=== PATIENT | female | born 1960 | race Caucasian/White ===

== ENCOUNTER → 2017-10-18 | Outpatient (CLI) | payer OTHER ==
--- NOTE | 2017-10-19 11:30 | MM ---
Reason for exam: screening (asymptomatic). Last mammogram was performed 1 year and 1 month ago. History: Patient is postmenopausal. Benign u/S left breast localization of the left breast, October 09, 2011. Benign US LT VAD breast biopsy of the left breast, September 27, 2011. Benign US left guided VAD of the left breast, July 29, 2010. Took hormonal contraceptives for 1 year beginning at age 19. Taking estrogen. Taking progesterone. Physical Findings: A clinical breast exam by your physician is recommended on an annual basis and results should be correlated with mammographic findings. MG 3D Screening Mammo W/Cad Bilateral CC and MLO view(s) were taken. Prior study comparison: September 25, 2016, bilateral MG 3d screening mammo w/cad. October 07, 2015, bilateral MG screening mammo w CAD. The breast tissue is extremely dense which could obscure a lesion on mammography. There is no discrete abnormality. No significant changes when compared with prior studies. ASSESSMENT: Negative, BI-RAD 1 RECOMMENDATION: Routine screening mammogram of both breasts in 1 year.
== END | disposition home or self-care (01) ==
LOC: RADMAMWWP 13:33
PROVIDERS: ATTEND Obstetrics & Gynecology
DX: Z12.31 Encounter for screening mammogram for malignant neoplasm of breast (principal)
CPT/HCPCS: 77063; G0202

== ENCOUNTER → 2018-10-22 | Outpatient (CLI) | payer OTHER ==
--- NOTE | 2018-10-24 13:34 | MM ---
Reason for exam: screening (asymptomatic). Last mammogram was performed 1 year ago. History: Patient is postmenopausal. Benign u/S left breast localization of the left breast, October 09, 2011. Benign US LT VAD breast biopsy of the left breast, September 27, 2011. Benign US left guided VAD of the left breast, July 29, 2010. Took hormonal contraceptives for 1 year beginning at age 19. Taking estrogen. Taking progesterone. Physical Findings: A clinical breast exam by your physician is recommended on an annual basis and results should be correlated with mammographic findings. MG 3D Screening Mammo W/Cad Bilateral CC and MLO view(s) were taken. Prior study comparison: October 18, 2017, bilateral MG 3d screening mammo w/cad. September 25, 2016, bilateral MG 3d screening mammo w/cad. The breast tissue is heterogeneously dense. This may lower the sensitivity of mammography. There is chronic nodularity bilaterally. No significant changes when compared with prior studies. ASSESSMENT: Negative, BI-RAD 1 RECOMMENDATION: Routine screening mammogram of both breasts in 1 year.
== END | disposition home or self-care (01) ==
LOC: RADMAMWWP 10:41
PROVIDERS: ATTEND Obstetrics & Gynecology
DX: Z12.31 Encounter for screening mammogram for malignant neoplasm of breast (principal)
CPT/HCPCS: 77063; 77067

== ENCOUNTER → 2019-09-10 | Outpatient (CLI) | payer OTHER ==
--- NOTE | 2019-09-10 10:52 | FL ---
EXAMINATION TYPE: FL UGI w small bowel DATE OF EXAM: 09/10/2019 COMPARISON: NONE HISTORY: GERD and thyroid disease unspecified. Patient complains of reflux and stomach pain for 3 mon ths. Palpable hardness when eating per patient. Has had some relief of symptoms in past with reflux m edication. TECHNIQUE: A double contrast UGI study is performed with small bowel follow through. Total 1 minute 53 seconds of fluoroscopic time was utilized during procedure. 55 spot images are saved to PACS. FINDINGS: Collection Officer image of the abdomen shows no gross abnormality. The esophagus shows satisfactory motility and emptying into the stomach. No evidence of fixed hiatal hernia or stricture noted. The stomach shows satisfactory distensibility, peristalsis, and mucosal folds. No evidence of any ma ss or focal ulcer disease. Mild distal esophageal reflux observed during real-time performance of geetha dy. The duodenal bulb and sweep are somewhat unusual with focal diverticulum along mesenteric surface thi rd portion. There is some redundancy with ligament of Treitz or duodenal jejunal junction felt that m ore near the midline. The small bowel study shows normal transit to the colon in less than 30 minutes. There is normal muc osal fold pattern throughout the small bowel. There is no evidence of any stricture or filling defec t noted. The terminal ileum is unremarkable. IMPRESSION: Mild gastroesophageal reflux. No focal ulcer or fixed hiatal hernia. Small duodenal dive rticulum. Possible underlying malrotation. Because of this along with patient complaining of hard pal pable mass advised follow-up CT to further assess.
--- NOTE | 2019-09-10 13:21 | US ---
EXAMINATION TYPE: US thyroid st tissue head/neck DATE OF EXAM: 09/10/2019 COMPARISON: NONE CLINICAL HISTORY: E07.9 Thyroid disease, unspecified, K21.9 Gerd,. Patient states she's taking thyroi d meds. GLAND SIZE: Right Lobe: 4.2 x 1.4 x 1.3 cm Overall Parenchyma: homogenous Left Lobe: 4.3 x 1.4 x 1.4 cm Overall Parenchyma: homogeneous Isthmus Thickness: 0.3 cm NODULES RIGHT: # of nodules measured on right: 0 LEFT: # of nodules measured on left: 0 ISTHMUS: # of nodules measured in the isthmus: 0 Bilateral neck scanned, no evidence of lymphadenopathy. No nodules seen. Thyroid echotexture is homogenous and symmetric. IMPRESSION: Thyroid ultrasound within normal limits.
== END | disposition home or self-care (01) ==
LOC: RADUSMAIN 07:56
PROVIDERS: ATTEND Family Medicine
DX: K21.9 Gastro-esophageal reflux disease without esophagitis (principal); K57.10 Diverticulosis of small intestine without perforation or abscess without bleeding
CPT/HCPCS: 74245; 76536

== ENCOUNTER → 2019-09-24 | Outpatient (CLI) | payer OTHER ==
--- NOTE | 2019-09-24 11:53 | CT ---
EXAMINATION TYPE: CT abdomen pelvis wo con DATE OF EXAM: 09/24/2019 COMPARISON: None HISTORY: abd pain heartburn bloating stool changes CT DLP: 831 mGycm Examination of the solid and hollow viscera is limited given the lack of contrast. FINDINGS: LUNG BASES: No evidence for nodule. No evidence for infiltrate. LIVER/GB: The gallbladder is unremarkable. No space-occupying hepatic lesion. PANCREAS: No pancreatic mass identified. No inflammatory process seen. SPLEEN: No evidence for splenomegaly. No intrasplenic lesions seen. ADRENALS: No adrenal nodules identified. No evidence for thickening. KIDNEYS: No evidence for renal mass. No nephrolithiasis. No hydronephrosis. BOWEL: Appendix has a normal appearance. No evidence of bowel obstruction. No inflammatory process. Lymph nodes: No evidence for adenopathy greater than 1 cm. Abdominal aorta: Atheromatous changes seen. No evidence for aneurysm. Genital organs: Right ovarian cystic mass measures of 4.1 cm. Further characterization with ultrasoun d is advised. Left ovarian cystic lesion measures 1.8 cm. The uterus appears to be somewhat atrophic. Other: No significant abnormality. IMPRESSION: 1 NO EVIDENCE FOR ABDOMINAL AORTIC ANEURYSM. 2.Right ovarian cystic mass measures of 4.1 cm. Further characterization with ultrasound is advised. Left ovarian cystic lesion measures 1.8 cm.
== END | disposition home or self-care (01) ==
LOC: RADCTMAIN 10:16
PROVIDERS: ATTEND Family Medicine
DX: N83.201 Unspecified ovarian cyst, right side (principal); N83.202 Unspecified ovarian cyst, left side
CPT/HCPCS: 74176

== ENCOUNTER → 2019-10-09 | Outpatient (CLI) | payer OTHER ==
--- NOTE | 2019-10-10 07:10 | US ---
EXAMINATION TYPE: US pelvic complete DATE OF EXAM: 10/09/2019 COMPARISON: Please compare to CT. CLINICAL HISTORY: N83.0 Ovarian cyst in postmenopausal patient TECHNIQUE: Transvaginal (TV) and Transabdominal (TA) . Transabdominal sonographic images of the pel vis were acquired. Transvaginal sonographic images were medically necessary to better assess the fol lowing anatomy: ovaries Date of LMP: 15 years prior, patient had hysterectomy EXAM MEASUREMENTS: Uterus: Surgically absent Endometrial Stripe: Surgically absent Right Ovary: 4.0 x 3.9 x 4.0cm Left Ovary: not visualized, extensive peristalsing bowel in left adnexa 1. Uterus: Surgically absent 2. Endometrium: Surgically absent 3. Right Ovary: cyst measuring with internal debris and solid component measuring 0.6 x 0.3 x 0.7c m 4. Left Ovary: not visualized, extensive peristalsing bowel in left adnexa 5. Bilateral Adnexa: wnl 6. Posterior cul-de-sac: wnl IMPRESSION: 1. Uterus is surgically absent. 2. Right ovarian cyst with internal debris and solid component. Hemorrhagic cyst or neoplasm is not e xcluded. Follow-up study in 6 weeks is advised.
== END | disposition home or self-care (01) ==
LOC: RADUSWWP 15:27
PROVIDERS: ATTEND Family Medicine
DX: N83.201 Unspecified ovarian cyst, right side (principal); Z90.710 Acquired absence of both cervix and uterus; Z88.2 Allergy status to sulfonamides; Z91.048 Other nonmedicinal substance allergy status; Z88.5 Allergy status to narcotic agent; Z88.1 Allergy status to other antibiotic agents
CPT/HCPCS: 76856

== ENCOUNTER → 2019-10-23 | Outpatient (CLI) | payer OTHER ==
--- NOTE | 2019-10-23 14:08 | BD ---
EXAMINATION TYPE: Axial Bone Density DATE OF EXAM: 10/23/2019 COMPARISON: 10.06.2008 CLINICAL HISTORY: 59 YR OLD FEMALE....ICD-10 CODE: N95.1 MENOPAUSAL SYMPTOMS Height: 67 Weight: 150 FRAX RISK QUESTIONS: NOTHING ADDITIONAL TO NOTE HERE RISK FACTORS HISTORY OF: Active: YES Diet low in dairy products/other sources of calcium: YES, GI ISSUES Postmenopausal woman: YES, AT ABOUT AGE 49 Take estrogen and/or progesterone medications: BIO-IDENTICAL HORMONES FOR ABOUT 5 YRS BCPs IN THE PAST FOR ABOUT 1 YR Hyperparathyroidism: NO Adrenal Insufficiency: NO MEDICATIONS: Prednisone or other steroids: STEROIDAL CREAM, TOPICAL, , FOR ABOUT 5-6 YRS Thyroid Medications: YES, PIT SUPERVISOR THYROID, 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 NATURAL THYROID, FOR ABOUT 2 YRS Additional Medications: CALCIUM/MAGNESIUM AND VIT D, REFLUX MEDS, Additional History: REFLUX AND THYROID EXAM MEASUREMENTS: Bone mineral densitometry was performed using the [employer]oyo System. Bone mineral density as measured about the Lumbar spine is: ----- L1-L4(G/cm2): 1.256 T Score Values are as follows: ----- L1: 0.2 ----- L2: 0.3 ----- L3: 1.1 ----- L4: 0.6 ----- L1-L4: 0.6 Bone mineral density has: Increased 5.9% since study of: 10.06.2008 Bone mineral density about the R hip (g/cm2): 0.942 Bone mineral density about the L hip (g/cm2): 0.974 T Score values are as follows: -----R Neck: -0.3 -----L Neck: -0.4 -----R Total: -0.2 -----L Total: -0.3 Bone mineral density has: Increased 1.0% since study of: 10.06.2008 FRAX%s: THERE IS A 6.4% CHANCE FOR A MAJOR OSTEOPOROTIC FX AND A 0.2% FOR HIP.....PROBABILITY FOR F X IN 10 YRS TIME IMPRESSION: Normal (Values between +1 and -1 indicate normal bone mass). Consider repeating this study in 5 year s or sooner if there is some new clinical indication. NOTE: T-SCORE=SD OF THE YOUNG ADULT MEAN.
--- NOTE | 2019-10-24 14:10 | MM ---
Reason for exam: screening (asymptomatic). Last mammogram was performed 1 year ago. History: Patient is postmenopausal. Benign u/S left breast localization of the left breast, October 09, 2011. Benign US LT VAD breast biopsy of the left breast, September 27, 2011. Benign US left guided VAD of the left breast, July 29, 2010. Took hormonal contraceptives for 1 year beginning at age 19. Taking estrogen. Taking progesterone. Physical Findings: A clinical breast exam by your physician is recommended on an annual basis and results should be correlated with mammographic findings. MG 3D Screening Mammo W/Cad Bilateral CC and MLO view(s) were taken. Prior study comparison: October 22, 2018, bilateral MG 3d screening mammo w/cad. October 18, 2017, bilateral MG 3d screening mammo w/cad. The breast tissue is heterogeneously dense. This may lower the sensitivity of mammography. Finding #1: Stable architectural distortion in the upper quadrant of the left breast consistent with known excisional changes. Finding #2: There are typically benign round calcifications in the left breast. There is a chronic nodularity in the right breast. There is no discrete abnormality. ASSESSMENT: Benign, BI-RAD 2 RECOMMENDATION: Routine screening mammogram of both breasts in 1 year.
== END | disposition home or self-care (01) ==
LOC: RADMAMWWP 13:07
PROVIDERS: ATTEND Obstetrics & Gynecology
DX: Z12.31 Encounter for screening mammogram for malignant neoplasm of breast (principal); N95.1 Menopausal and female climacteric states
CPT/HCPCS: 77063; 77067; 77080

== ENCOUNTER → 2020-10-20 | Outpatient (CLI) | payer OTHER ==
--- NOTE | 2020-10-22 10:18 | MM ---
Reason for exam: screening (asymptomatic). Last mammogram was performed 1 year ago. History: Patient is postmenopausal. Benign u/S left breast localization of the left breast, October 09, 2011. Benign US LT VAD breast biopsy of the left breast, September 27, 2011. Benign US left guided VAD of the left breast, July 29, 2010. Took hormonal contraceptives for 1 year beginning at age 19. Taking estrogen. Taking progesterone. Physical Findings: A clinical breast exam by your physician is recommended on an annual basis and results should be correlated with mammographic findings. MG 3D Screening Mammo W/Cad Bilateral CC and MLO view(s) were taken. Prior study comparison: October 23, 2019, bilateral MG 3d screening mammo w/cad. October 22, 2018, bilateral MG 3d screening mammo w/cad. The breast tissue is heterogeneously dense. This may lower the sensitivity of mammography. Oval asymmetric density subareolar right MLO view persists on 3D but has no clear correlate on CC. Further evaluation recommended. ASSESSMENT: Incomplete: need additional imaging evaluation, BI-RAD 0 RECOMMENDATION: Special view mammogram of the right breast. (3D) If lesion persists on supplemental views, image directed ultrasound is recommended. [facility] will attempt to contact patient to return for supplemental views and ultrasound if indicated.
== END | disposition home or self-care (01) ==
LOC: RADMAMWWP 11:51
PROVIDERS: ATTEND Obstetrics & Gynecology
DX: Z12.31 Encounter for screening mammogram for malignant neoplasm of breast (principal)
CPT/HCPCS: 77063; 77067

== ENCOUNTER → 2020-10-22 | Outpatient (CLI) | payer OTHER ==
[2020-10-22 20:47] LABS: Gliadin AB IgA, Deaminated NEGATIVE (NEGATIVE); Gliadin AB IgA, Unit 0.3 U/mL; Gliadin AB IgG, Deaminated NEGATIVE (NEGATIVE)
== END | disposition home or self-care (01) ==
LOC: LABWHC1 09:56
PROVIDERS: ATTEND Nurse Practitioner
DX: R19.4 Change in bowel habit (principal)
CPT/HCPCS: 36415; 82656; 83516

== ENCOUNTER → 2020-10-27 | Outpatient (CLI) | payer OTHER ==
--- NOTE | 2020-10-27 08:59 | MM ---
Reason for exam: additional evaluation requested from abnormal screening. Last mammogram was performed less than 1 month ago. History: Patient is postmenopausal. Benign u/S left breast localization of the left breast, October 09, 2011. Benign US LT VAD breast biopsy of the left breast, September 27, 2011. Benign US left guided VAD of the left breast, July 29, 2010. Took hormonal contraceptives for 1 year beginning at age 19. Taking estrogen for 5 years. Taking progesterone for 5 years. Physical Findings: Nurse did not find any significant physical abnormalities on exam. MG 3D Work Up W/Cad RT ML and spot compression MLO view(s) were taken of the right breast. Prior study comparison: October 20, 2020, bilateral MG 3d screening mammo w/cad. October 23, 2019, bilateral MG 3d screening mammo w/cad. The breast tissue is heterogeneously dense. This may lower the sensitivity of mammography. There is no discrete abnormality. These results were verbally communicated with the patient and result sheet given to the patient on 10/27/20. ASSESSMENT: Benign, BI-RAD 2 RECOMMENDATION: Return to routine screening mammogram schedule for both breasts.
== END | disposition home or self-care (01) ==
LOC: RADMAMWWP 07:41
PROVIDERS: ATTEND Obstetrics & Gynecology
DX: R92.8 Other abnormal and inconclusive findings on diagnostic imaging of breast (principal)
CPT/HCPCS: 77061; 77065

== ENCOUNTER → 2021-11-02 | Outpatient (CLI) | payer OTHER ==
--- NOTE | 2021-11-03 12:30 | MM ---
Reason for exam: screening (asymptomatic). Last mammogram was performed 1 year ago. History: Patient is postmenopausal. Benign u/S left breast localization of the left breast, October 09, 2011. Benign US LT VAD breast biopsy of the left breast, September 27, 2011. Benign US left guided VAD of the left breast, July 29, 2010. Took hormonal contraceptives for 1 year beginning at age 19. Taking estrogen for 5 years. Taking progesterone for 5 years. Physical Findings: A clinical breast exam by your physician is recommended on an annual basis and results should be correlated with mammographic findings. MG 3D Screening Mammo W/Cad Bilateral CC and MLO view(s) were taken. Prior study comparison: October 27, 2020, right breast MG 3d work up w/cad RT. October 20, 2020, bilateral MG 3d screening mammo w/cad. The breast tissue is extremely dense which could obscure a lesion on mammography. There is no discrete abnormality. ASSESSMENT: Negative, BI-RAD 1 RECOMMENDATION: Routine screening mammogram of both breasts in 1 year. Some consider bilateral ultrasound surveillance in patient with extremely dense fibroglandular tissue.
== END | disposition home or self-care (01) ==
LOC: RADMAMWWP 09:33
PROVIDERS: ATTEND Obstetrics & Gynecology
DX: Z12.31 Encounter for screening mammogram for malignant neoplasm of breast (principal); Z78.0 Asymptomatic menopausal state
CPT/HCPCS: 77063; 77067

== ENCOUNTER → 2022-05-04 | Outpatient (CLI) | payer OTHER ==
[2022-05-04 10:40] LABS: HCT 41.2 % (37.2-46.3); HGB 13.2 g/dL (12.0-15.0); MCH 28.8 pg (27.0-32.0); MCV 89.8 fL (80.0-97.0); Mean Platelet Volume 9.9 fL (9.5-12.2); NRBC Per 100 WBC 0 /100 WBCS (0.0-0.0); Platelet Count 253 X 10*3/uL (140-440); RBC 4.59 X 10*6/uL (4.10-5.20); RDW 13.1 % (11.5-14.5); WBC 5.25 X 10*3/uL (4.50-10.00)
[2022-05-04 10:59] LABS: ALT 18 U/L (8-44); AST 23 U/L (13-35); African American GFR (CKD) 109.3 (60.0-200.0); Albumin 4.3 g/dL (3.8-4.9); Albumin/Globulin Ratio 1.67 (1.60-3.17); Alkaline Phosphatase 103 U/L (41-126); BUN/Creat Ratio 25.73 Ratio (12.00-20.00); Blood Urea Nitrogen 16.8 mg/dL (9.0-27.0); Carbon Dioxide 24.6 mmol/L (20.0-27.5); Chloride 105 mmol/L (96-109); Chol/HDL Ratio 2.56 Ratio; Globulin 2.6 g/dL (1.6-3.3); Glucose 94 mg/dL (70-110); LDL Cholesterol,Calculated 115.3 mg/dL (0.0-131.0); Magnesium 2.1 mg/dL (1.5-2.4); Non-African American GFR(CKD) 94.3 (60.0-200.0); Potassium 3.7 mmol/L (3.5-5.5); Sodium 142 mmol/L (135-145); Total Protein 6.9 g/dL (6.2-8.2); VLDL Calculation 11.64 mg/dL (5.00-40.00)
== END | disposition home or self-care (01) ==
LOC: LABWHC1 07:39
PROVIDERS: ATTEND Nurse Practitioner Adult Health
DX: Z00.00 Encounter for general adult medical examination without abnormal findings (principal); E78.5 Hyperlipidemia, unspecified; E03.9 Hypothyroidism, unspecified
CPT/HCPCS: 36415; 80053; 80061; 83735; 84443; 85027

== ENCOUNTER → 2022-11-03 | Outpatient (CLI) | payer OTHER ==
--- NOTE | 2022-11-06 09:29 | MM ---
Reason for Exam: Screening (asymptomatic). Last screening mammogram was performed 12 month(s) ago. Patient History: Menarche at age 12. First Full-Term at age 29. Late child-bearing (after 29). Hysterectomy at age 45. Postmenopausal. Currently using Estrogen, for 5 years. Currently using Progesterone, for 5 years. Hormonal Contraceptives, starting at age 19 for 1 year. 10/09/2011, Benign Excisional Biopsy on the left side. 09/27/2011, Benign Core Biopsy on the left side. 07/29/2010, Benign Core Biopsy on the left side. Risk Values: Brenda 5 year model risk: 3.3%. NCI Lifetime model risk: 13.4%. Prior Study Comparison: 10/20/2020 Bilateral Screening Mammogram, [facility]. 10/27/2020 Right Diagnostic Mammogram, [facility]. 11/02/2021 Bilateral Screening Mammogram, [facility]. Tissue Density: The breast tissue is heterogeneously dense. This may lower the sensitivity of mammography. Findings: Analyzed By CAD. Small benign-appearing bilateral axillary lymph nodes are redemonstrated. There is no suspicious new group of microcalcifications or new distortion in either breast. Overall Assessment: Negative, BI-RAD 1 Management: Screening Mammogram of both breasts in 1 year. Some advise bilateral breast ultrasound surveillance in patients with background dense tissue. A clinical breast exam by your physician is recommended on an annual basis and results should be correlated with mammographic findings. Electronically signed and approved by: Raza Infante M.D.
== END | disposition home or self-care (01) ==
LOC: RADMAMWWP 09:58
PROVIDERS: ATTEND Obstetrics & Gynecology
DX: Z12.31 Encounter for screening mammogram for malignant neoplasm of breast (principal); Z78.0 Asymptomatic menopausal state
CPT/HCPCS: 77063; 77067

== ENCOUNTER → 2023-05-08 | Outpatient (CLI) | payer OTHER ==
[2023-05-08 19:18] LABS: HCT 44.5 % (37.2-46.3); HGB 14.1 d/dL (12.0-15.0); MCHC 31.7 d/dL (32.0-37.0); MCV 91.6 FL (80.0-97.0); Mean Platelet Volume 10.2 FL (9.5-12.2); NRBC Per 100 WBC 0 X 10*3/uL (0.00-0.01); Platelet Count 244 X 10*3/uL (140-440); RBC 4.86 X 10*6/uL (4.10-5.20); RDW 12.4 % (11.5-14.5); WBC 5.43 X 10*3/uL (4.50-10.00)
[2023-05-09 05:22] LABS: ALT 23 U/L (8-44); AST 25 U/L (13-35); Albumin 4.3 d/dL (3.8-4.9); Albumin/Globulin Ratio 1.72 Ratio (1.60-3.17); Alkaline Phosphatase 115 U/L (41-126); BUN/Creat Ratio 14.14 Ratio (12.00-20.00); Blood Urea Nitrogen 9.9 mg/dL (9.0-27.0); Calcium 9.3 mg/dL (8.7-10.3); Carbon Dioxide 25.4 mmol/L (21.6-31.8); Chloride 105 mmol/L (96-109); Globulin 2.5 d/dL (1.6-3.3); Glucose 94 mg/dL (70-110); LDL Cholesterol,Calculated 131.7 mg/dL (0.0-131.0); Potassium 4.5 mmol/L (3.5-5.5); Sodium 141 mmol/L (135-145); T4, Free (Free Thyroxine) 0.81 ng/dL (0.80-1.80); Total Bilirubin 0.9 mg/dL (0.3-1.2); Total Protein 6.8 d/dL (6.2-8.2); Uric Acid 3.7 mg/dL (2.9-7.7)
== END | disposition home or self-care (01) ==
LOC: LABWHC1 08:36
PROVIDERS: ATTEND Family Medicine
DX: Z00.00 Encounter for general adult medical examination without abnormal findings (principal); E03.9 Hypothyroidism, unspecified
CPT/HCPCS: 36415; 80053; 80061; 82306; 83036; 84439; 84443; 84550; 85027

== ENCOUNTER → 2023-11-05 | Outpatient (CLI) | payer OTHER ==
--- NOTE | 2023-11-07 08:35 | MM ---
Reason for Exam: Screening (asymptomatic). Last screening mammogram was performed 12 month(s) ago. Patient History: Menarche at age 12. First Full-Term at age 29. Late child-bearing (after 29). Hysterectomy at age 45. Postmenopausal. Currently using Estrogen, for 5 years. Currently using Progesterone, for 5 years. Hormonal Contraceptives, starting at age 19 for 1 year. 10/09/2011, Benign Excisional Biopsy on the left side. 09/27/2011, Benign Core Biopsy on the left side. 07/29/2010, Benign Core Biopsy on the left side. Risk Values: Brenda 5 year model risk: 3.3%. NCI Lifetime model risk: 13.0%. Prior Study Comparison: 10/27/2020 Right Diagnostic Mammogram, [facility]. 11/02/2021 Bilateral Screening Mammogram, [facility]. 11/03/2022 Bilateral MG 3D screening mammo w/cad, [facility]. Tissue Density: The breast tissue is heterogeneously dense. This may lower the sensitivity of mammography. Findings: Analyzed By CAD. There is no suspicious group of microcalcifications or new suspicious mass in either breast. Overall Assessment: Benign, BI-RAD 2 Management: Screening Mammogram of both breasts in 1 year. . Patient should continue monthly self-breast exams. A clinical breast exam by your physician is recommended on an annual basis. This exam should not preclude additional follow-up of suspicious palpable abnormalities. Note on Brenda scores and lifetime risk: 1. A Brenda score greater than 3% is considered moderate risk. If this is the case, consider specialist referral to assess eligibility for a risk reducing agent. 2. If overall lifetime risk for the development of breast cancer is 20% or higher, the patient may qualify for future screening with alternating mammogram and breast MRI. Electronically signed and approved by: Piero Hayes M.D. Radiologis
== END | disposition home or self-care (01) ==
LOC: RADMAMWWP 10:56
PROVIDERS: ATTEND Obstetrics & Gynecology
DX: Z12.31 Encounter for screening mammogram for malignant neoplasm of breast (principal); Z78.0 Asymptomatic menopausal state
CPT/HCPCS: 77063; 77067

== ENCOUNTER → 2023-11-08 | Outpatient (CLI) | payer OTHER ==
[2023-11-08 18:34] LABS: T4, Free (Free Thyroxine) 1.08 ng/dL (0.80-1.80)
== END | disposition home or self-care (01) ==
LOC: LABWHC1 11:33
PROVIDERS: ATTEND Internal Medicine Clinical Cardiac Electrophysiology
DX: E07.9 Disorder of thyroid, unspecified (principal)
CPT/HCPCS: 36415; 84439; 84443; 84481

== ENCOUNTER → 2024-11-06 | Outpatient (CLI) | payer MEDICARE ==
--- NOTE | 2024-11-10 18:12 | MM ---
Reason for Exam: Screening (asymptomatic). Last screening mammogram was performed 12 month(s) ago. Patient History: Menarche at age 12. First Full-Term at age 29. Late child-bearing (after 29). Hysterectomy at age 45. Postmenopausal. Currently using Estrogen, for 5 years. Patient used Progesterone for 5 years. Hormonal Contraceptives, starting at age 19 for 1 year. 10/09/2011, Benign Excisional Biopsy on the left side. 09/27/2011, Benign Core Biopsy on the left side. 07/29/2010, Benign Core Biopsy on the left side. Risk Values: Brenda 5 year model risk: 3.4%. NCI Lifetime model risk: 12.6%. Prior Study Comparison: 11/02/2021 Bilateral Screening Mammogram, [facility]. 11/03/2022 Bilateral MG 3D screening mammo w/cad, [facility]. 11/05/2023 Bilateral MG 3D screening mammo w/cad, [facility]. Tissue Density: The breasts are heterogeneously dense, which may obscure small masses. Findings: Analyzed By CAD. Asymmetric density in the lateral subareolar right cc view is unchanged. Possible distortion central inner left cc view posterior depth for which further evaluation is recommended. Asymmetric density far posterior lateral right cc view and also medial right CC view middle depth both of which are more pronounced and incompletely disperses on 3-D images. Further evaluation recommended. Overall Assessment: Incomplete: need additional imaging evaluation, BI-RAD 0 Management: Special View Mammogram of both breasts. Diagnostic Breast Ultrasound of both breasts. [facility] will attempt to contact patient to return for supplemental views and ultrasound if indicated. [facility], , 11/10/2024 6:08 PM. Electronically signed and approved by: Ash Phipps M.D. Radiologist
== END | disposition home or self-care (01) ==
LOC: RADMAMWWP 10:38
PROVIDERS: ATTEND Obstetrics & Gynecology
DX: Z12.31 Encounter for screening mammogram for malignant neoplasm of breast (principal); R92.333 Mammographic heterogeneous density, bilateral breasts; Z78.0 Asymptomatic menopausal state
CPT/HCPCS: 77063; 77067

== ENCOUNTER 2025-04-07 08:30 | Day surgery (SDC) | payer MEDICARE ==
[~2025-04-07 08:30] MED LIST: LIDOCAINE 1% (10MG/ML) FOR IV START INTRADERMA PRN; ONDANSETRON 4 MG/2 ML VIAL IVP PRN
[2025-04-07 09:03] VITALS: TEMP 98.1
[2025-04-07] MEDS: LACTATED RINGERS 1,000 ML IV ONE (09:14)
[2025-04-07] MEDS: LACTATED RINGERS 1,000 ML IV SCH (09:14)
[2025-04-07] MEDS ORDERED: PROPOFOL 10 MG/ML 20 ML VIAL IV ONE (09:19)
--- NOTE | 2025-04-07 09:37 | P.PCN ---
Date of Procedure: 04/07/25 Procedure(s) Performed: BRIEF HISTORY: Patient is a 64-year-old, pleasant, female scheduled for an upper endoscopy as a part evaluation of intermittent dysphagia to solids and GERD for the last 7 years duration.. PROCEDURE PERFORMED: Esophagogastroduodenoscopy with biopsy PREOPERATIVE DIAGNOSIS: GERD and intermittent dysphagia to solids. IV sedation per anesthesia. PROCEDURE: After informed consent was obtained, the patient was brought into the endoscopy unit. IV sedation was administered by Anesthesia under continuous monitoring. Initially the Olympus GIF-140 video endoscope was inserted into the mouth. Esophagus intubated without any difficulty. It was gradually advanced into the stomach and duodenum and carefully examined. The bulb and the second part of the duodenum appeared normal. The scope at this time was withdrawn to the stomach, adequately insufflated with air, and upon careful examination, mucosa of the antrum, and mild gastritis and biopsies were done from this area. Mucosa of the body, cardia and the fundus appeared normal. The scope was then withdrawn into the esophagus. The GE junction was located at 39 cm from the incisors. The esophagus appeared normal. There were no erosions or ulcerations seen. No evidence of esophageal stricture. Multiple biopsies were done from mid and distal esophagus rule out eosinophilic esophagitis and the patient tolerated the procedure well. IMPRESSION: 1. Normal-appearing esophagus with no evidence of esophagitis or esophageal stricture. 2. Mild antral gastritis. RECOMMENDATIONS: The findings of this examination were discussed with the patient as well as her family. She was advised to follow-up with the biopsy results. Continue with Pepcid 20 mg twice daily and follow antireflux measures..
[2025-04-07 10:06] VITALS: BP 128/72; PULSE 78; RESP 18
== END 2025-04-07 10:30 | disposition home or self-care (01) ==
LOC: ORWHC2ENDO 08:30
PROVIDERS: ATTEND Internal Medicine Gastroenterology
DX: K29.50 Unspecified chronic gastritis without bleeding (principal); K21.9 Gastro-esophageal reflux disease without esophagitis; E78.5 Hyperlipidemia, unspecified; Z79.899 Other long term (current) drug therapy; Z90.710 Acquired absence of both cervix and uterus; Z88.5 Allergy status to narcotic agent; Z88.2 Allergy status to sulfonamides; Z88.8 Allergy status to other drugs, medicaments and biological substances; Z98.890 Other specified postprocedural states
CPT/HCPCS: 88305; 43239; J2704